=== PATIENT | male | born 1960 ===

== ENCOUNTER 2022-04-02 08:27 | Day surgery (SDC) | payer OTHER ==
[~2022-04-02] VITALS: Ht 182.9 cm; Wt 86.7 kg
[2022-04-02] MEDS ORDERED: METO50ER PO (08:57)
[2022-04-02] MEDS ORDERED: XELJANZ5 MG PO (08:58)
--- NOTE | 2022-04-02 09:53 | NUR ---
04/02/22 0953 AARON HARO 0.15MG OF EPI (1MG/1ML) ADDED TO 30 MLS OF BUPIVACAINE 0.5% TO CREATE A LOCAL SOLUTION OF BUPIVACAINE 0.5% WITH EPI 1:200,000.
== END 2022-04-02 11:40 | disposition home or self-care (01) ==
LOC: ORSCSDS 08:27
PROVIDERS: Orthopaedic Surgery
PROC: 0SBD4ZZ Excision of Left Knee Joint, Percutaneous Endoscopic Approach (ICD-10-PCS; principal; 2022-04-02 10:00)
DX: S83.242A Other tear of medial meniscus, current injury, left knee, initial encounter (principal); M17.12 Unilateral primary osteoarthritis, left knee; I10 Essential (primary) hypertension; Z79.899 Other long term (current) drug therapy
CPT/HCPCS: A9270; J0171; J2250; J2704; J3010; J3370; J7060; J7120

== ENCOUNTER 2022-08-22 02:32 | Day surgery (SDC) | payer OTHER ==
[~2022-08-22] VITALS: Wt 89.1 kg
[~2022-08-22 02:32] MED LIST: METO50ER PO; XELJANZ5 MG PO
[2022-08-22] MEDS ORDERED: Prednisone10 MG PO (15:02)
[2022-08-22] MEDS ORDERED: ALPR1 (15:03)
[2022-08-22] MEDS ORDERED: TUMERIC PO (15:04)
[2022-08-22] MEDS ORDERED: Vitamin B Comple1 EA PO (15:04)
[2022-08-22] MEDS ORDERED: CIDAFLEX TABLE1 EAC1 PO (15:12)
== END 2022-08-22 16:58 | disposition home or self-care (01) ==
LOC: ATC 02:32
DX: K51.312 Ulcerative (chronic) rectosigmoiditis with intestinal obstruction (principal)
CPT/HCPCS: J7050; Q5104

== ENCOUNTER 2022-09-06 00:45 | Day surgery (SDC) | payer OTHER ==
[~2022-09-06 00:45] MED LIST changes: +ALPR1; +CIDAFLEX TABLE1 EAC1 PO; +Prednisone10 MG PO; +TUMERIC PO; +Vitamin B Comple1 EA PO
== END 2022-09-06 11:24 | disposition home or self-care (01) ==
LOC: ATC 00:45
DX: K51.312 Ulcerative (chronic) rectosigmoiditis with intestinal obstruction (principal)
CPT/HCPCS: 96413; 96415; A9270; J2920; J7050; Q5104

== ENCOUNTER 2022-10-02 02:39 | Day surgery (SDC) | payer OTHER ==
[~2022-10-02] VITALS: Wt 91.9 kg
--- NOTE | 2022-10-02 13:45 | NUR ---
PT DECLINES PRE MEDS.
== END 2022-10-02 16:45 | disposition home or self-care (01) ==
LOC: ATC 02:39
DX: K51.312 Ulcerative (chronic) rectosigmoiditis with intestinal obstruction (principal)
CPT/HCPCS: 96413; 96415; J7050; Q5104

== ENCOUNTER 2022-11-27 00:45 | Day surgery (SDC) | payer OTHER ==
[~2022-11-27] VITALS: Wt 91.6 kg
== END 2022-11-27 11:10 | disposition home or self-care (01) ==
LOC: ATC 00:45
DX: K51.312 Ulcerative (chronic) rectosigmoiditis with intestinal obstruction (principal)
CPT/HCPCS: J7050; Q5104

== ENCOUNTER → 2023-02-14 | Outpatient (CLI) | payer OTHER ==
[2023-02-14 12:36] LABS: BASOPHILS ABSOLUTE AUTO 0.03 K/mm3 (0.00-0.23); BASOPHILS PERCENT AUTO 1 % (0-2); EOSINOPHILS ABSOLUTE AUTO 0.02 K/mm3 (0.00-0.68); EOSINOPHILS PERCENT AUTO 0 % (0-6); Hematocrit 41.7 % (37.0-53.0); Hemoglobin 14.5 g/dL (13.5-17.5); IMMATURE GRAN ABSOLUTE AUTO 0.01 K/mm3 (0.00-0.10); IMMATURE GRAN PERCENT AUTO 0 % (0-1); LYMPHOCYTES ABSOLUTE AUTO 1.87 K/mm3 (0.84-5.20); LYMPHOCYTES PERCENT AUTO 30 % (21-46); MONOCYTES ABSOLUTE AUTO 0.78 K/mm3 (0.16-1.47); MONOCYTES PERCENT AUTO 13 % (4-13); Mean Corpuscular HGB 32.4 pg (26.0-34.0); Mean Corpuscular HGB Conc 34.8 g/dL (31.5-36.5); Mean Corpuscular Volume 93 fL (80-100); Mean Platelet Volume 9.2 fL (9.1-12.4); NEUTROPHILS ABSOLUTE AUTO 3.52 K/mm3 (1.96-9.15); NEUTROPHILS PERCENT AUTO 57 % (41-73); Platelet Count 314 K/mm3 (150-400); RDW Coefficient Variation 13.5 % (11.7-14.2); RDW Standard Deviation 46.2 fL (35.1-46.3); Red Blood Cell Count 4.48 M/mm3 (4.30-5.90); White Blood Cell Count 6.23 K/mm3 (4.00-11.30)
[2023-02-14 19:01] LABS: Alanine Aminotransfer (ALT/SGP 38 U/L (12-78); Albumin, Blood 3.6 g/dL (3.4-5.0); Alk Phos 45 U/L (50-136); Anion Gap 4 mmol/L (6-16); Aspartate Aminotrans (AST/SGOT 33 U/L (12-37); Bilirubin, Total 0.8 mg/dL (0.1-1.0); Blood Urea Nitrogen 10 mg/dL (8-24); Bun/Creatinine Ratio 10.8 (12.0-20.0); CHOL/HDL RATIO 3.2; CO2, Blood 24 mmol/L (21-32); Calcium, Blood 8.7 mg/dL (8.5-10.1); Chloride, Blood 112 mmol/L (98-108); Cholesterol 228 mg/dL (50-200); Creatinine, Blood 0.92 mg/dL (0.60-1.20); Globulin, Blood 3.7 g/dL (2.2-4.0); Glomerular Filtration Rate 95 (60-); Glucose, Blood 118 mg/dL (70-99); HDL Cholesterol 72 mg/dL (>39); LDL/HDL RATIO 1.6; Low Density Lipoprotein Chol 116 mg/dL (0-110); Potassium, Blood 3.8 mmol/L (3.5-5.5); Prostate Specific Antigen 0.704 ng/mL (0.000-4.000); Sodium, Blood 140 mmol/L (136-145); Total Protein, Blood 7.3 g/dL (6.4-8.2); Triglycerides 200 mg/dL (30-160); Very Low Density Lipoprot Chol 40 mg/dL (6-32)
== END | disposition home or self-care (01) ==
LOC: LAB SHORT 10:23 → LAB 10:23
PROVIDERS: Family Medicine
DX: Z00.00 Encounter for general adult medical examination without abnormal findings (principal); I10 Essential (primary) hypertension; N42.9 Disorder of prostate, unspecified
CPT/HCPCS: 80053; 80061; 84153; 85025

== ENCOUNTER → 2024-02-14 | Outpatient (CLI) | payer OTHER ==
[2024-02-17 22:38] LABS: CALPROTECTIN,FECAL <5 ug/g (<=49)
== END | disposition home or self-care (01) ==
LOC: LAB 09:48 → LAB SHORT 09:48 → LAB FUT 02-11 08:05
PROVIDERS: Internal Medicine Gastroenterology
DX: K51.312 Ulcerative (chronic) rectosigmoiditis with intestinal obstruction (principal); R19.7 Diarrhea, unspecified
CPT/HCPCS: 83993